=== PATIENT | female | born 1965 | race Caucasian/White ===

== ENCOUNTER → 2016-10-11 | Outpatient (CLI) | payer OTHER ==
[~2016-10-11] MED LIST: DIOV160T60 PO; FLUO-1 PO; IBUP-232 PO; LORT5TAB PO; LOVA10TA PO; TAB-TAB PO; VITA500L4 PO; [UNRECOGNIZED DRUG - OTHER] PO
[2016-10-11 11:31] LABS: HEMATOCRIT 40.1 % (35.0-46.0); MEAN CELL VOLUME 91.7 FL (80.0-100.0); MEAN CORPUSCULAR HEMOGLOBIN 30.8 PG (27.0-34.0); MEAN CORPUSCULAR HGB CONC 33.6 % (32.0-36.0); PLATELET COUNT 295 TH/MM3 (150-450); RED BLOOD COUNT 4.37 MIL/MM3 (4.00-5.30); REVIEW FLAG FINAL; WHITE BLOOD COUNT 7.7 TH/MM3 (4.0-11.0)
[2016-10-11 11:39] LABS: ALT (GPT) 27 U/L (10-53); ANION GAP 8 MEQ/L (5-15); AST (GOT) 22 U/L (15-37); BICARBONATE 26.4 MEQ/L (21.0-32.0); BLOOD UREA NITROGEN 16 MG/DL (7-18); CHLORIDE 104 MEQ/L (98-107); GLOMERULAR FILTRATION RATE 82 ML/MIN (>89); GLUCOSE,FASTING 86 MG/DL (74-99); SODIUM (NA) 138 MEQ/L (136-145)
[2016-10-11 11:49] LABS: ALKALINE PHOSPHATASE 114 U/L (45-117); HDL CHOLESTEROL 40.1 MG/DL (40.0-60.0); LDL CHOLESTEROL 109 MG/DL (0-99); TOTAL BILIRUBIN ADULT 0.4 MG/DL (0.2-1.0)
== END ==
LOC: CLAB 10:57
PROVIDERS: ATTEND Family Medicine
DX: I10 Essential (primary) hypertension (principal); E78.5 Hyperlipidemia, unspecified; F41.9 Anxiety disorder, unspecified; D37.039 Neoplasm of uncertain behavior of the major salivary glands, unspecified; Z72.0 Tobacco use
CPT/HCPCS: 36415; 80053; 80061; 84443; 85027

== ENCOUNTER 2017-08-25 15:45 | Emergency (ER) | payer OTHER ==
[~2017-08-25] VITALS: Ht 162.6 cm; Wt 75.6 kg
[2017-08-25 15:55] VITALS: BP 158/100; PULSE 87; RESP 16; TEMP 97.9; O2SAT 99
[2017-08-25] MEDS ORDERED: LOSA50TA PO (16:09)
[2017-08-25] MEDS ORDERED: LOVA20TA PO (16:09)
[2017-08-25] MEDS ORDERED: DICL75TA PO (17:01)
[2017-08-25] MEDS ORDERED: TRAM50TA PO (17:01)
--- NOTE | 2017-08-25 17:32 | PD ---
HPI Chief Complaint: Musculoskeletal Complaint Time Seen by Provider: 16:14 Travel History International Travel<30 days: No Contact w/Intl Traveler<30days: No Traveled to known affect area: No History of Present Illness HPI 52-year-old female that presents to the ED for evaluation of pain to the left jaw. Per patient she's had this since 2:00 this morning. Per patient she woke up after she heard a pop on her left jaw. She states that she denies any injury. Per patient she was doing was sleeping. She woke up from this. She's been having pain since. She's been taking some ibuprofen with minimal relief. She does have a history of TMJ surgery as well as dental issues. Per patient she does have problems with her teeth secondary to clenchin. He states that about a week ago was diagnosed with cold-like symptoms and was started on some [id number] remedies without improvement of symptoms. Per patient she wasn 't sure if this was related or not. She states that the pain currently 7 out of 10 and gets worse with movement of the jaw basically with opening of the jaw. Has not seen anybody for this. No other medical issues. 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) Gynecologic Surgery: Yes (LAPROSCOPIC) Oral Surgery: Yes (TMJ REPAIR BILAT) Pacemaker: No Other Surgery: Yes Social History Alcohol Use: Yes (occas, wine , mix drinks) Tobacco Use: Yes (1/2-1/4 pack per day) Substance Use: No Allergies-Medications (Allergen,Severity, Reaction): Coded Allergies: doxycycline (Unverified Allergy, Unknown, THROAT SWELLING, 08/25/17) minocycline (Unverified Allergy, Unknown, THROAT SWELLING, 08/25/17) tigecycline (Unverified Allergy, Unknown, THROAT SWELLING, 08/25/17) Reported Meds & Prescriptions Reported Meds & Active Scripts Active Diclofenac Sodium DR (Diclofenac Sodium) 75 Mg Tabdr 75 Mg PO BID PRN Tramadol (Tramadol HCl) 50 Mg Tab 50 Mg PO Q6H PRN Reported Losartan (Losartan Potassium) 50 Mg Tab 50 Mg PO DAILY Lovastatin 20 Mg Tab 20 Mg PO DAILY Review of Systems Except as stated in HPI: all other systems reviewed are Neg Physical Exam Narrative GENERAL: Well-nourished, well-developed patient in no apparent distress. SKIN: Warm and dry. HEAD: Atraumatic. Normocephalic. EYES: Pupils equal and round reactive to light and accommodation. No scleral icterus. No injection or drainage. ENT: No nasal bleeding or discharge. Mucous membranes pink and moist. TMs are clear with no sign of infection or perforation. No mastoid tenderness. Ear canals are intact bilaterally. No lymphadenopathy. Nostril mucosa is red and moist with clear mucus noted. No sinus tenderness to palpation noted. Tonsils are not enlarged or swollen. No ulvua Deviation. Tongue is midline. Patient has reproducible pain on the TMJ joint of the left jaw. NECK: Trachea midline. No JVD. No meningeal signs noted CARDIOVASCULAR: Regular rate and rhythm. RESPIRATORY: No accessory muscle use. Clear to auscultation. Breath sounds equal bilaterally. GASTROINTESTINAL: Abdomen soft, non-tender, nondistended. Hepatic and splenic margins not palpable. MUSCULOSKELETAL: Extremities without clubbing, cyanosis, or edema. No obvious deformities. NEUROLOGICAL: Awake and alert. No obvious cranial nerve deficits. Motor grossly within normal limits. Five out of 5 muscle strength in the arms and legs. Normal speech. PSYCHIATRIC: Appropriate mood and affect; insight and judgment normal. Data Data Last Documented VS Vital Signs Date Time Temp Pulse Resp B/P (MAP) Pulse Ox O2 Delivery O2 Flow Rate FiO2 08/25/17 16:05 16 08/25/17 15:55 97.9 87 158/100 (119) [address] Facial Bones W/O Iv Cont (08/25/17 ) [facility] Medical Decision Making Medical Screen Exam Complete: Yes Emergency Medical Condition: Yes Medical Record Reviewed: Yes Interpretation(s) CT of the facial bones and shortness of bony injury deformity. Differential Diagnosis TMJ versus ear pain versus muscle strain Narrative Course 52-year-old female that presents to the ED for evaluation of left-sided jaw pain. Patient was properly examined and was found to have signs and symptoms very consistent what appears to be likely TMJ. Unclear etiology. Unclear as to what happened with the pop sensation that she felt. She does tell me that she had significant surgeries for her TMJ. Per patient she has hardware secondary to this. This was about 20 years ago. She is concerned something is going on here. I do recommend imaging to rule out sign of other acute disease like infection or bony injury, be causing the discomfort. Imaging was negative for this. At this time this appears to be likely TMJ joint injury. I will treat patient with diclofenac sodium and tramadol. Do recommend close follow- up with a maxillofacial surgeon. ED worsening symptoms. Follow with PCP. Diagnosis Primary Impression: TMJ (temporomandibular joint disorder) Referrals: Mitchell Alvarez DMD Patient Instructions: General Instructions Additional Instructions: Take medications as prescribed. Follow-up with PCP. See ED for any worsening symptoms. Do not drink or drive while taking pain medication. Apply ice or heat as needed for pain Med/Other Pt SpecificInfo: Prescription(s) given Scripts Diclofenac Sodium DR (Diclofenac Sodium DR) 75 Mg Tabdr 75 MG PO BID Y for PAIN SCALE 1 TO 10, #20 TAB 0 Refills Prov: Giovanny Costello MD 08/25/17 Tramadol (Tramadol) 50 Mg Tab 50 MG PO Q6H Y for PAIN, #14 TAB 0 Refills Prov: Giovanny Costello MD 08/25/17 Disposition: 01 DISCHARGE HOME Condition: Stable Leighton Silva Aug 25, 2017 17:32
--- NOTE | 2017-08-25 17:43 | RADRPT ---
EXAM DATE/TIME: 08/25/2017 17:09 [facility] COMPARISON: No previous studies available for comparison. INDICATIONS : Patient heard a popping sound to the left jaw area and then became painful. RADIATION DOSE: 29.97 CTDIvol (mGy) MEDICAL HISTORY : Hypertension. Crohns disease. SURGICAL HISTORY : Tubal ligation. TMJ repair. Adenoma removed from right neck area. ENCOUNTER: Initial ACUITY: 1 day PAIN SCORE: 5/10 LOCATION: Left facial TECHNIQUE: Volumetric scanning of the facial bones was performed. Using automated exposure control and adjustme nt of the mA and/or kV according to patient size, radiation dose was kept as low as reasonably achiev able to obtain optimal diagnostic quality images. DICOM format image data is available electronicall y for review and comparison. FINDINGS: Fixation screws are present near the angle of the mandible bilaterally. There is some mild osteoarthr itis at the temporomandibular joints bilaterally. No acute fracture. The paranasal sinuses are clear. CONCLUSION: 1. Arthritic changes of the temporomandibular joints. Previous screw fixation of the mandible bilater ally near the angle of the mandible. Paranasal sinuses are clear. Soren Rae MD on August 25, 2017 at 17:36 Board Certified Radiologist. This report was verified electronically.
== END 2017-08-25 18:18 | disposition home or self-care (01) ==
LOC: PHEFT 15:45
DX: M26.602 Left temporomandibular joint disorder, unspecified (principal); I10 Essential (primary) hypertension; E78.00 Pure hypercholesterolemia, unspecified; K50.90 Crohn's disease, unspecified, without complications; F17.210 Nicotine dependence, cigarettes, uncomplicated
CPT/HCPCS: 70486; 99283